=== PATIENT | female | born 2000 | race African-American/Black ===

== ENCOUNTER 2021-05-10 10:03 | Emergency (ER) | payer OTHER, SELFPAY ==
--- NOTE | ~2021-05-10 | CT_ITS ---
EXAMINATION: CT ABDOMEN AND PELVIS WITH CONTRAST CLINICAL INFORMATION: Right lower quadrant pain. COMPARISON: None TECHNIQUE: Multidetector volumetric images were obtained from the superior aspect of the liver through the pubic symphysis following administration 85 mL of Omnipaque 350 intravenous contrast. Sagittal and coronal reformatted images were obtained on the technologist's workstation. Oral contrast: No This CT examination was performed using dose optimization techniques as appropriate, variously including the following: *Automated exposure control *Adjustment of mA and/or kV according to patient size (this includes techniques or standardized protocols for targeted exams where dose is matched to indication/reason for exam; i.e. extremities or head) *Use of iterative reconstruction technique DLP: 555 mGy-cm FINDINGS: LUNG BASES: The visualized lung bases are unremarkable. LIVER, GALLBLADDER, AND BILIARY TREE: The liver is normal in size, shape, and attenuation. No focal hepatic lesion or biliary ductal dilatation is present. The gallbladder is unremarkable with no evidence of radiopaque gallstones, gallbladder wall thickening, or obvious pericholecystic inflammatory changes. PANCREAS: Unremarkable. SPLEEN: Unremarkable. ADRENAL GLANDS: Unremarkable. KIDNEYS AND URETERS: The kidneys are normal in size, shape, and attenuation. No hydronephrosis, hydroureter, or calculi seen. No perinephric stranding. BLADDER: Unremarkable. GASTROINTESTINAL TRACT: There are no inflammatory changes in the bowel. The appendix is normal in caliber. No luminal fluid distention or abnormal wall enhancement. ABDOMINAL WALL: No significant hernia is appreciated. LYMPH NODES: No lymphadenopathy. VASCULAR: Unremarkable. PELVIC VISCERA: There is small amount of ascites in the deep pelvis and right paracolic gutter. The left ovary is unremarkable. Small postovulatory corpus luteum seen on left measuring 1.3 cm. There is a dominant follicle on the right measuring 1.9 x 1.5 cm. Uterus unremarkable. OSSEOUS STRUCTURES: Unremarkable. CT/CT abdomen pelvis w con IMPRESSION: 1. Mild pelvic ascites with some fluid lower right paracolic gutter. Dominant follicle right ovary 1.9 x 1.5 cm. No adnexal mass. Unremarkable uterus. 2. Unremarkable appendix. No bowel obstruction or focal intestinal inflammatory changes. 3. No hydronephrosis or calculi or perinephric stranding.
[2021-05-10 10:05] VITALS: BP 121/74; PULSE 84; RESP 19; TEMP 35.9; O2SAT 99; BMI 27.4
--- NOTE | 2021-05-10 10:35 | ED.ABDPAIN ---
HPI - Abdominal Pain General Chief Complaint: Abdominal Pain <WINSTON De Jesus Last Filed: 05/10/21 15:47> Stated Complaint: abd pain <WINSTON De Jesus Last Filed: 05/10/21 15:47> Time Seen by Provider: 05/10/21 10:27 <WINSTON De Jesus Last Filed: 05/10/21 15:47> Source: patient <WINSTON De Jesus Last Filed: 05/10/21 15:47> Mode of arrival: ambulatory <WINSTON De Jesus Last Filed: 05/10/21 15:47> Limitations: no limitations <WINSOTN De Jesus Last Filed: 05/10/21 15:47> History of Present Illness HPI narrative: patient presents to ED for right lower quadrant pain that began since last night. Patient denies any dysuria, hematuria, flank pain, fever, Vaginal discharge, vaginal bleeding, chills, nausea, or vomiting. Patient no surgical history. <WINSTON De Jesus Last Filed: 05/10/21 15:47> MD elicited complaint: abdominal pain <WINSTON De Jesus Last Filed: 05/10/21 15:47> Related Data Home Medications: Previous Rx's Medication Instructions Recorded naproxen 500 mg tablet 500 mg PO BID PRN #20 tab 05/10/21 <WINSTON De Jesus Last Filed: 05/10/21 15:47> Allergies/Adverse Reactions: Allergies Allergy/AdvReac Type Severity Reaction Status Date / Time No Known Allergies Allergy Verified 05/10/21 10:27 <WINSTON De Jesus Last Filed: 05/10/21 15:47> Review of Systems Review of Systems Yes all other systems are reviewed and are negative <WINSTON De Jesus Last Filed: 05/10/21 15:47> Constitutional: Reports as per HPI and Reports no additional constitutional complaints <WINSTON De Jesus Last Filed: 05/10/21 15:47> Eyes: Reports as per HPI and Reports no additional eye complaints <WINSTON De Jesus Last Filed: 05/10/21 15:47> Reports system reviewed and no additional complaints, except as documented and Reports as per HPI <WINSTON De Jesus Last Filed: 05/10/21 15:47> Cardiovascular: Reports as per HPI and Reports no additional cardiovascular complaints <WINSTON De Jesus - Last Filed: 05/10/21 15:47> Respiratory: Reports as per HPI and Reports no additional respiratory complaints <IWNSTON De Jesus Last Filed: 05/10/21 15:47> Gastrointestinal: Reports as per HPI, Reports no additional gastrointestinal complaints and Reports abdominal pain ( right lower quadrant) <WINSTON De Jesus Last Filed: 05/10/21 15:47> Musculoskeletal: Reports no additional musculoskeletal complaints and Reports as per HPI <WINSTON De Jesus Last Filed: 05/10/21 15:47> Reports system reviewed and no additional complaints, except as documented and Reports as per HPI <WINSTON De Jesus Last Filed: 05/10/21 15:47> Physical Exam Vital Signs: Vital Signs: Last Vital Signs Temp 98.2 F 05/10/21 15:50 Pulse 86 05/10/21 15:50 Resp 16 05/10/21 15:50 BP 111/81 05/10/21 15:50 Pulse Ox 100 05/10/21 15:50 Body Mass Index 27.4 <WINSTON De Jesus - Last Filed: 05/10/21 15:47> Vital Signs: Last Vital Signs Temp 98.2 F 05/10/21 15:50 Pulse 86 05/10/21 15:50 Resp 16 05/10/21 15:50 BP 111/81 05/10/21 15:50 Pulse Ox 100 05/10/21 15:50 Body Mass Index 27.4 <Perez Lara MD - Last Filed: 06/14/21 16:23> Const: General: cooperative, healthy appearing, comfortable, no acute distress, well developed, alert and awake; No Physically active <WINSTON De Jesus Last Filed: 05/10/21 15:47> Orientation/consciousness: patient oriented x3 <WINSTON De Jesus Last Filed: 05/10/21 15:47> HENMT: Head: Yes normal to inspection, Yes No palpable skull fracture present, Yes normocephalic, Yes atraumatic and No abrasion <WINSTON De Jesus Last Filed: 05/10/21 15:47> Eyes: General: appearance normal, both eyes and all related structures <George Samuel, PA Magno Last Filed: 05/10/21 15:47> Neck: Neck: Yes normal visual inspection, Yes full ROM, Yes no lymphadenopathy, Yes no meningeal signs, Yes trachea midline, Yes supple and No tender <WINSTON De Jesus Magno Last Filed: 05/10/21 15:47> Chest: Chest palpation & inspection: normal inspection of the chest and normal palpation of entire chest wall <George Samuel, PA Magno Last Filed: 05/10/21 15:47> Resp: Effort & Inspection: normal respiratory effort and able to speak in complete sentences <WINSTON De Jesus Magno Last Filed: 05/10/21 15:47> Auscultation: clear to auscultation bilaterally <WINSTON De Jesus Last Filed: 05/10/21 15:47> Cardio: Jugular venous distension: no JVD <WINSTON De Jesus Magno Last Filed: 05/10/21 15:47> Heart sounds: S1 normal heart sound present and S2 normal heart sound present <WINSTON De Jesus Magno Last Filed: 05/10/21 15:47> GI: Inspection: Yes normal to inspection and No abdominal wall ecchymosis <George Samuel, PA Magno Filed: 05/10/21 15:47> Palpation (GI): Soft to palpation, not firm, Tenderness to palpation present (GI) ( mild), no guarding and not rigid <WINSTON De Jesus Magno Last Filed: 05/10/21 15:47> : General: No CVA tenderness and Yes no CVA tenderness <WINSTON De Jesus Magno Last Filed: 05/10/21 15:47> Back/Spine/Pelvis: Back: no CVA tenderness, No CVA tenderness and No back tenderness <WINSTON De Jesus Magno Last Filed: 05/10/21 15:47> Skin: General skin exam: no rashes or lesions noted and elasticity normal <WINSTON De Jesus Magno Last Filed: 05/10/21 15:47> Neuro: General: patient oriented x3, gait normal, no meningeal signs and CN's II-XI intact bilaterally <WINSTON De Jesus - Last Filed: 05/10/21 15:47> Cranial nerves: Yes CN's II-XII intact bilaterally <WINSTON De Jesus - Last Filed: 05/10/21 15:47> Extrem: General: Yes normal to inspection and Yes full ROM <WINSTON De Jesus - Last Filed: 05/10/21 15:47> Psych: Appearance: grossly normal, well kempt and not disheveled <WINSTON De Jesus - Last Filed: 05/10/21 15:47> Course Course Course Narrative: patient will have labs most likely go for imaging if come back negative. <WINSTON De Jesus Last Filed: 05/10/21 15:47> I have reviewed the chart <Perez Laar MD - Last Filed: 06/14/21 16:23> Reevaluation(s) Reevaluation #1: labs are normal. Patient not any distress. Patient is engaging with partner comfortably, but due to patient presents to the ED with right lower quadrant pain that woke up this morning patient will be sent for abdominal CT scan to make she does not really have appendicitis. Patient does not have any elevated white blood cell count. Vital signs are stable. <WINSTON De Jesus Last Filed: 05/10/21 15:47> Time: 13:00 <WINSTON De Jesus Last Filed: 05/10/21 15:47> Reevaluation #2: abdominal CT scan shows right ovarian cyst. Possible cyst rupture. Patient presently in bed not in any distress. Abdomen is soft benign and nontender. CT scan negative for appendicitis. not concerned for ovarian torsion or tubo-ovarian abscess. <WINSTON De Jesus - Last Filed: 05/10/21 15:47> Time: 15:29 <WINSTON De Jesus - Last Filed: 05/10/21 15:47> MDM - Abdominal Pain MDM Narrative Medical decision making narrative: ovarian cyst <WINSTON De Jesus Last Filed: 05/10/21 15:47> Lab Data Result diagrams: : 05/10/21 10:58 05/10/21 10:58 <WINSTON De Jesus - Last Filed: 05/10/21 15:47> Labs: Lab Results 05/10/21 05/10/2105/10/21 Range/Units 10:58 10:58 10:58 WBC 6.0 (4.8-10.8) X10*3/uL RBC 4.73 (4.20-5.50) X10*6/uL Hgb 13.6 (12.0-16.0) g/dl Hct 40.5 (37-47) % MCV 85.6 (80-98) fL MCH 28.8 (27.0-33.0) pg MCHC 33.6 (31.0-35.0) g/dl RDW 11.9 (11.0-16.0) % Plt Count 260 (160-400) X10*3/uL MPV 8.5 L (9.4-12.3) fL Immature Gran % (Auto) 0.3 (0.0-0.4) % Neut % (Auto) 54.5 (45-73) % Lymph % (Auto) 29.7 (20-40) % [place] % (Auto) 14.3 H (2-11) % Eos % (Auto) 0.7 (0-4) % Baso % (Auto) 0.5 (0-2) % Lymph # (Auto) 1.8 (1.2-4.9) X10*3/uL [place] # (Auto) 0.9 (0.1-1.2) X10*3/uL Eos # (Auto) 0.0 (0.0-0.4) X10*3/uL Baso # (Auto) 0.0 (0.0-0.2) X10*3/uL Abs Immat Gran (auto) 0.02 (0.00-0.03) X10*3/uL Absolute Neuts (auto) 3.3 (2.0-8.3) X10*3/uL Absolute Nucleated RBC 0.000 (0.0-0.012) X10*3/uL Nucleated RBC % (auto) 0.0 (0.0-0.2) /100WBC PT 12.0 (9.9-13.0) SEC INR 1.1 (0.9-1.1) APTT 28.9 (24.1-38.0) SEC Sodium 138 (135-145) mmol/L Potassium 4.5 (3.3-5.1) mmol/L Chloride 107 (96-108) mmol/L Carbon Dioxide 23 (22-29) mmol/L Anion Gap 13 (12-20) BUN 7 L (9-16) mg/dL Creatinine 0.80 (0.5-1.4) mg/dL Estim Creat Clear Calc 103.7 Estimated GFR > 60 Random Glucose 101 (60-115) mg/dL Calcium 8.8 (8.4-10.2) mg/dL Total Bilirubin 0.9 (0.0-1.0) mg/dL Direct Bilirubin 0.3 (0.0-0.5) mg/dL AST 22 (5-31) U/L ALT 11 (0-31) U/L Alkaline Phosphatase 63 (39-117) U/L Total Protein 6.7 (6.5-8.0) g/dL Albumin 3.9 (3.5-5.0) g/dL Lipase 40 (8-78) U/L Beta HCG, Quant < 2 mIU/mL Urine Color Urine Appearance Urine pH (5.0-8.0) Ur Specific [place] (1.005-1.025) Urine Protein (NEG-TRACE) MG/DL Urine Glucose (UA) (NEG) MG/DL Urine Ketones (NEG) MG/DL Urine Blood (NEG) Urine Nitrite (NEG) Ur Leukocyte Esterase (NEG) 05/10/21 Range/Units 10:58 WBC (4.8-10.8) X10*3/uL RBC (4.20-5.50) X10*6/uL Hgb (12.0-16.0) g/dl Hct (37-47) % MCV (80-98) fL MCH (27.0-33.0) pg MCHC (31.0-35.0) g/dl RDW (11.0-16.0) % Plt Count (160-400) X10*3/uL MPV (9.4-12.3) fL Immature Gran % (Auto) (0.0-0.4) % Neut % (Auto) (45-73) % Lymph % (Auto) (20-40) % [place] % (Auto) (2-11) % Eos % (Auto) (0-4) % Baso % (Auto) (0-2) % Lymph # (Auto) (1.2-4.9) X10*3/uL [place] # (Auto) (0.1-1.2) X10*3/uL Eos # (Auto) (0.0-0.4) X10*3/uL Baso # (Auto) (0.0-0.2) X10*3/uL Abs Immat Gran (auto) (0.00-0.03) X10*3/uL Absolute Neuts (auto) (2.0-8.3) X10*3/uL Absolute Nucleated RBC (0.0-0.012) X10*3/uL Nucleated RBC % (auto) (0.0-0.2) /100WBC PT (9.9-13.0) SEC INR (0.9-1.1) APTT (24.1-38.0) SEC Sodium (135-145) mmol/L Potassium (3.3-5.1) mmol/L Chloride (96-108) mmol/L Carbon Dioxide (22-29) mmol/L Anion Gap (12-20) BUN (9-16) mg/dL Creatinine (0.5-1.4) mg/dL Estim Creat Clear Calc Estimated GFR Random Glucose (60-115) mg/dL Calcium (8.4-10.2) mg/dL Total Bilirubin (0.0-1.0) mg/dL Direct Bilirubin (0.0-0.5) mg/dL AST (5-31) U/L ALT (0-31) U/L Alkaline Phosphatase (39-117) U/L Total Protein (6.5-8.0) g/dL Albumin (3.5-5.0) g/dL Lipase (8-78) U/L Beta HCG, Quant mIU/mL Urine Color YELLOW Urine Appearance HAZY Urine pH 7.0 (5.0-8.0) Ur Specific [place] 1.010 (1.005-1.025) Urine Protein TRACE (NEG-TRACE) MG/DL Urine Glucose (UA) NEG (NEG) MG/DL Urine Ketones NEG (NEG) MG/DL Urine Blood NEG (NEG) Urine Nitrite NEG (NEG) Ur Leukocyte Esterase NEG (NEG) <WINSTON De Jesus - Last Filed: 05/10/21 15:47> Lab Results 05/10/21 05/10/21 05/10/21 Range/Units 10:58 10:58 10:58 WBC 6.0 (4.8-10.8) X10*3/uL RBC 4.73 (4.20-5.50) X10*6/uL Hgb 13.6 (12.0-16.0) g/dl Hct 40.5 (37-47) % MCV 85.6 (80-98) fL MCH 28.8 (27.0-33.0) pg MCHC 33.6 (31.0-35.0) g/dl RDW 11.9 (11.0-16.0) % Plt Count 260 (160-400) X10*3/uL MPV 8.5 L (9.4-12.3) fL Immature Gran % (Auto) 0.3 (0.0-0.4) % Neut % (Auto) 54.5 (45-73) % Lymph % (Auto) 29.7 (20-40) % [place] % (Auto) 14.3 H (2-11) % Eos % (Auto) 0.7 (0-4) % Baso % (Auto) 0.5 (0-2) % Lymph # (Auto) 1.8 (1.2-4.9) X10*3/uL [place] # (Auto) 0.9 (0.1-1.2) X10*3/uL Eos # (Auto) 0.0 (0.0-0.4) X10*3/uL Baso # (Auto) 0.0 (0.0-0.2) X10*3/uL Abs Immat Gran (auto) 0.02 (0.00-0.03) X10*3/uL Absolute Neuts (auto) 3.3 (2.0-8.3) X10*3/uL Absolute Nucleated RBC 0.000 (0.0-0.012) X10*3/uL Nucleated RBC % (auto) 0.0 (0.0-0.2) /100WBC PT 12.0 (9.9-13.0) SEC INR 1.1 (0.9-1.1) APTT 28.9 (24.1-38.0) SEC Sodium 138 (135-145) mmol/L Potassium 4.5 (3.3-5.1) mmol/L Chloride 107 (96-108) mmol/L Carbon Dioxide 23 (22-29) mmol/L Anion Gap 13 (12-20) BUN 7 L (9-16) mg/dL Creatinine 0.80 (0.5-1.4) mg/dL Estim Creat Clear Calc 103.7 Estimated GFR > 60 Random Glucose 101 (60-115) mg/dL Calcium 8.8 (8.4-10.2) mg/dL Total Bilirubin 0.9 (0.0-1.0) mg/dL Direct Bilirubin 0.3 (0.0-0.5) mg/dL AST 22 (5-31) U/L ALT 11 (0-31) U/L Alkaline Phosphatase 63 (39-117) U/L Total Protein 6.7 (6.5-8.0) g/dL Albumin 3.9 (3.5-5.0) g/dL Lipase 40 (8-78) U/L Beta HCG, Quant < 2 mIU/mL Urine Color Urine Appearance Urine pH (5.0-8.0) Ur Specific [place] (1.005-1.025) Urine Protein (NEG-TRACE) MG/DL Urine Glucose (UA) (NEG) MG/DL Urine Ketones (NEG) MG/DL Urine Blood (NEG) Urine Nitrite (NEG) Ur Leukocyte Esterase (NEG) 05/10/21 Range/Units 10:58 WBC (4.8-10.8) X10*3/uL RBC (4.20-5.50) X10*6/uL Hgb (12.0-16.0) g/dl Hct (37-47) % MCV (80-98) fL MCH (27.0-33.0) pg MCHC (31.0-35.0) g/dl RDW (11.0-16.0) % Plt Count (160-400) X10*3/uL MPV (9.4-12.3) fL Immature Gran % (Auto) (0.0-0.4) % Neut % (Auto) (45-73) % Lymph % (Auto) (20-40) % [place] % (Auto) (2-11) % Eos % (Auto) (0-4) % Baso % (Auto) (0-2) % Lymph # (Auto) (1.2-4.9) X10*3/uL [place] # (Auto) (0.1-1.2) X10*3/uL Eos # (Auto) (0.0-0.4) X10*3/uL Baso # (Auto) (0.0-0.2) X10*3/uL Abs Immat Gran (auto) (0.00-0.03) X10*3/uL Absolute Neuts (auto) (2.0-8.3) X10*3/uL Absolute Nucleated RBC (0.0-0.012) X10*3/uL Nucleated RBC % (auto) (0.0-0.2) /100WBC PT (9.9-13.0) SEC INR (0.9-1.1) APTT (24.1-38.0) SEC Sodium (135-145) mmol/L Potassium (3.3-5.1) mmol/L Chloride (96-108) mmol/L Carbon Dioxide (22-29) mmol/L Anion Gap (12-20) BUN (9-16) mg/dL Creatinine (0.5-1.4) mg/dL Estim Creat Clear Calc Estimated GFR Random Glucose (60-115) mg/dL Calcium (8.4-10.2) mg/dL Total Bilirubin (0.0-1.0) mg/dL Direct Bilirubin (0.0-0.5) mg/dL AST (5-31) U/L ALT (0-31) U/L Alkaline Phosphatase (39-117) U/L Total Protein (6.5-8.0) g/dL Albumin (3.5-5.0) g/dL Lipase (8-78) U/L Beta HCG, Quant mIU/mL Urine Color YELLOW Urine Appearance HAZY Urine pH 7.0 (5.0-8.0) Ur Specific [place] 1.010 (1.005-1.025) Urine Protein TRACE (NEG-TRACE) MG/DL Urine Glucose (UA) NEG (NEG) MG/DL Urine Ketones NEG (NEG) MG/DL Urine Blood NEG (NEG) Urine Nitrite NEG (NEG) Ur Leukocyte Esterase NEG (NEG) <Perez Lara MD - Last Filed: 06/14/21 16:23> Discharge Plan Discharge Clinical Impression: Ovarian cyst <WINSTON De Jesus - Last Filed: 05/10/21 15:47> Patient Disposition: Home, Self-Care <WINSTON De Jesus - Last Filed: 05/10/21 15:47> Instructions: Ruptured Ovarian Cyst (ED) <WINSTON De Jesus - Last Filed: 05/10/21 15:47> Additional Instructions: his CT scan came back negative for appendicitis but showed right ovarian cyst/ovarian cyst rupture. Blood count was normal. Your kidney function is normal. Urine negative for UTI. Urine came back negative for . Your kidney function was normal. Please follow-up with your PCP /child's nurse. return to ED for worsening abdominal pain, nausea, vomiting, fever, chills, flank pain, vaginal discharge, vaginal bleeding, or any other concerning symptoms. <WINSTON De Jesus - Last Filed: 05/10/21 15:47> Prescriptions: New naproxen 500 mg tablet 500 mg PO BID PRN (Reason: pain) Qty: 20 RF: 0 <WINSTON De Jesus - Last Filed: 05/10/21 15:47> Stand Alone Forms: Work/School Release <WINSTON De Jesus - Last Filed: 05/10/21 15:47> Interventions: ED Discharge Assessment Last Done: 05/10/21 16:08 <WINSTON De Jesus - Last Filed: 05/10/21 15:47> Discharge Date/Time: 05/10/21 16:08 <WINSTON De Jesus - Last Filed: 05/10/21 15:47> Print Language: Green[place]ic <WINSTON De Jesus Last Filed: 05/10/21 15:47> [facility] Social History Social History: Social History Alcohol intake: never Patient Tobacco Use Status: Never used Tobacco Use of substances other than those prescribed or required for medical reasons: Yes Substance Use Type: Marijuana Substance Use Frequency: Occasionally Advance Directives: No Advance Directives Information Provided: No Patient : No <WINSTON De Jesus Last Filed: 05/10/21 15:47>
[2021-05-10] MEDS: 0.9 % Sodium Chloride 1,000 ML 999 ML IV (11:00)
[2021-05-10 11:04] LABS: MANUAL DIFF FLAG NO
[2021-05-10 11:08] LABS: Glucose Urine UA NEG (NEG); Leukocyte Esterase Urine NEG (NEG); Nitrite Urine NEG (NEG); Urine Blood NEG (NEG); Urine Ketones NEG (NEG); Urine Protein TRACE MG/DL (NEG-TRACE)
[2021-05-10 11:12] LABS: Appearance Urine HAZY; Color Urine YELLOW
[2021-05-10 11:31] LABS: INTERNATIONAL NORM RATIO 1.1 (0.9-1.1)
[2021-05-10 11:34] LABS: Partial Thromboplastin Time 28.9 SEC (24.1-38.0)
[2021-05-10 11:41] LABS: Alanine Aminotransferase 11 U/L (0-31); Albumin Level 3.9 g/dL (3.5-5.0); Alkaline Phosphatase 63 U/L (39-117); Anion Gap 13 (12-20); Aspartate Amino Transferase 22 U/L (5-31); Bilirubin Direct 0.3 mg/dL (0.0-0.5); Bilirubin Total 0.9 mg/dL (0.0-1.0); Blood Urea Nitrogen 7 mg/dL (9-16); Calcium 8.8 mg/dL (8.4-10.2); Carbon Dioxide 23 mmol/L (22-29); Chloride 107 mmol/L (96-108); Creatinine Clr Calc Pharmacy 103.7; Estimated Glomerular Filt Rate > 60; Glucose Random 101 mg/dL (60-115); Lipase 40 U/L (8-78); Potassium 4.5 mmol/L (3.3-5.1); Sodium 138 mmol/L (135-145); Total Protein 6.7 g/dL (6.5-8.0)
[2021-05-10 11:43] LABS: HCG Quantitative < 2 mIU/mL
[2021-05-10 11:44] LABS: Basophils Percent Auto 0.5 % (0-2); Eosinophils Percent Auto 0.7 % (0-4); Hematocrit 40.5 % (37-47); Hemoglobin 13.6 g/dl (12.0-16.0); Imm Gran Abs Auto 0.02 X10*3/uL (0.00-0.03); Imm Gran Pct Auto 0.3 % (0.0-0.4); Lymphocytes Absolute Auto 1.8 X10*3/uL (1.2-4.9); Lymphocytes Percent Auto 29.7 % (20-40); Mean Corpuscular HGB Conc 33.6 g/dl (31.0-35.0); Mean Corpuscular Hemoglobin 28.8 pg (27.0-33.0); Mean Corpuscular Volume 85.6 fL (80-98); Mean Platelet Volume 8.5 fL (9.4-12.3); Monocytes Absolute Auto 0.9 X10*3/uL (0.1-1.2); Monocytes Percent Auto 14.3 % (2-11); Neutrophils Absolute Auto 3.3 X10*3/uL (2.0-8.3); Neutrophils Percent Auto 54.5 % (45-73); Platelet Count 260 X10*3/uL (160-400); Red Blood Count 4.73 X10*6/uL (4.20-5.50); Red Cell Distribution Width 11.9 % (11.0-16.0)
[2021-05-10] MEDS: Ketorolac Tromethamine 30 MG/ML VIAL IVPUSH (12:18)
[2021-05-10 14:16] VITALS: RESP 16
[2021-05-10 14:17] VITALS: BP 112/71; PULSE 76; RESP 19; TEMP 36.8; O2SAT 100
[2021-05-10] MEDS: iohexoL 350 MG/ML 100 ML INFUS..BTL IV (14:26)
[2021-05-10 15:50] VITALS: BP 111/81; PULSE 86; RESP 16; TEMP 36.8; O2SAT 100
== END 2021-05-10 16:08 | disposition home or self-care (01) ==
PROVIDERS: Physician Assistant; Emergency Provider Emergency Medicine
DX: N83.201 Unspecified ovarian cyst, right side (principal)
CPT/HCPCS: 36415; 74177; 80053; 80076; 81003; 82248; 83690; 84702; 85025; 85610; 85730; 96361; 96374; 99284; J1885; Q9967